=== PATIENT | male | born 1960 | race Caucasian/White ===

== ENCOUNTER 2023-08-18 16:08 | Inpatient (IN) | payer OTHER ==
[~2023-08-18] VITALS: Ht 177.8 cm; Wt 81.6 kg
[2023-08-18 19:50] VITALS: BP 134/54; TEMP 102.5
[2023-08-18 20:30] VITALS: TEMP 101.1
[2023-08-18] MEDS: ACETAMINOPHEN 325 MG TABLET PO PRN (21:01)
[2023-08-18 21:30] VITALS: TEMP 99.8
[2023-08-18] MEDS ORDERED: ONDANSETRON HCL/PF 4 MG/2 ML VIAL IVP PRN (22:30)
[2023-08-18] MEDS ORDERED: Z GUARD REMEDY 4 OZ OINT TP PRN (22:30)
[2023-08-18] MEDS ORDERED: MAG HYDROX/AL HYDROX/SIMETH 30 ML UDC PO PRN (22:30)
[2023-08-18] MEDS ORDERED: MAGNESIUM HYDROXIDE 30 ML UDC PO PRN (22:30)
[2023-08-18] MEDS ORDERED: ACETAMINOPHEN 325 MG TABLET PO PRN (22:30)
[2023-08-18] MEDS ORDERED: LORAZEPAM INJ 2 MG/ML VIAL IV PRN (22:30)
[2023-08-18] MEDS ORDERED: ZOLPIDEM TARTRATE 5 MG TABLET PO PRN (22:30)
[2023-08-18] MEDS ORDERED: PIPERACI/TAZO 3.375GM/D5W 50ML PB IV ONE (23:59)
[2023-08-19] MEDS: IV NS 0.9% 1,000 ML IV PRN (00:07)
[2023-08-19] MEDS: ZOSYN IVPB 3.375 G in IV D5W 50ml IV SCH ×2 (00:09→06:46)
[2023-08-19] MEDS ORDERED: VANCOMYCIN 1.5 GM in IV D5W 500ml IV ONE (00:30)
[2023-08-19] MEDS ORDERED: VANCOMYCIN 1 GM /D5W 250 ML PB IV ONE (00:50)
[2023-08-19 04:00] VITALS: BP 155/87; TEMP 98.4; O2SAT 95
[2023-08-19 06:18] LABS: BASOPHILS % (AUTO) 0.3 % (0.0-2.0); EOSINOPHILS % (AUTO) 0.2 % (0.0-6.0); HEMATOCRIT 40 % (39-51); HEMOGLOBIN 13.2 g/dL (13.5-17.5); LYMPHOCYTES % (AUTO) 16.1 % (20.0-44.0); MEAN CORPUSCULAR HEMOGLOBIN 30 PG (26.0-33.0); MEAN CORPUSCULAR HGB CONC 34 g/dl (31.0-36.0); MEAN CORPUSCULAR VOLUME 89 fL (80-96); MONOCYTES # (AUTO) 1.2 K/uL (0.1-1.30); MONOCYTES % (AUTO) 19.2 % (2.0-12.0); NEUTROPHILS % (AUTO) 64.2 % (43.0-81.0); PLATELET COUNT (AUTO) 141 K/uL (150-450); RED BLOOD CELL COUNT(AUTO) 4.45 MIL/uL (4.5-6.0); RED CELL DISTRIBUTION WIDTH 13.8 % (11.5-15.0); WHITE BLOOD COUNT (AUTO) 6.2 K/uL (4.3-11.0)
[2023-08-19 06:27] LABS: ALBUMIN 2.4 g/dL (3.4-5.0); CALCIUM, SERUM 8.5 mg/dL (8.5-10.1); CREATININE 0.5 mg/dL (0.6-1.3); MAGNESIUM 1.6 mg/dL (1.8-2.4); PHOSPHORUS 3.3 mg/dL (2.5-4.9); TOTAL PROTEIN, SERUM 5.8 g/dL (6.4-8.2)
[2023-08-19 06:50] LABS: POTASSIUM 2.8 mmol/L (3.5-5.1)
[2023-08-19] MEDS ORDERED: POTASSIUM CHLORIDE 10 MEQ TABLET.SA PO ONE (07:00)
[2023-08-19 07:24] LABS: BAND % (MANUAL) 5 % (0.0-5.0); EOSINOPHILS % (MANUAL) 1 % (0-4); LYMPHOCYTES % (MANUAL) 16 % (16-48); MONOCYTES % (MANUAL) 18 % (0-11.0); NEUTROPHILS % (MANUAL) 60 (42-76)
[2023-08-19 07:25] LABS: PLATELET ESTIMATE DECREASED
[2023-08-19] MEDS ORDERED: ERGO500093 PO (07:52)
[2023-08-19] MEDS ORDERED: ATOR40TA PO (07:52)
[2023-08-19] MEDS ORDERED: PANT40TA49 PO (07:52)
[2023-08-19] MEDS ORDERED: FOLI0.4T6 PO (07:52)
[2023-08-19] MEDS ORDERED: CARV6.252 PO (07:52)
[2023-08-19] MEDS ORDERED: ASPI-1420 PO (07:52)
[2023-08-19] MEDS ORDERED: CLOP75TA15 PO (07:52)
[2023-08-19] MEDS: PANTOPRAZOLE 40 MG VIAL IV SCH (08:18)
[2023-08-19] MEDS: CHLORDIAZEPOXIDE HCL 25 MG CAPSULE PO SCH ×2 (08:18→16:18)
[2023-08-19] MEDS: NEOMY SULF/BACITRAC ZN/POLY 15 GM TUBE TP SCH ×2 (08:19→16:20)
[2023-08-19] MEDS ORDERED: MAGNESIUM OXIDE 400 MG TABLET PO ONE (10:00)
[2023-08-19] MEDS: PIPERACILLIN /TAZOBACTAM 3.375 G in IV D5W 50 ML IV SCH ×3 (11:41→23:33)
[2023-08-19 12:00] VITALS: BP 140/90; TEMP 98.6; O2SAT 95
[2023-08-19] MEDS: VANCOMYCIN 1 GM in IV D5W 250 ML IV SCH ×3 (12:13→23:55)
[2023-08-19] MEDS: ACETAMINOPHEN 325 MG TABLET PO PRN (15:57)
[2023-08-19 16:00] VITALS: BP 113/71; TEMP 100; O2SAT 97
[2023-08-19 20:00] VITALS: BP 113/78; TEMP 97.9; O2SAT 97
[2023-08-20 04:00] VITALS: BP 152/90; TEMP 98.1; O2SAT 97
[2023-08-20] MEDS: PIPERACILLIN /TAZOBACTAM 3.375 G in IV D5W 50 ML IV SCH ×4 (06:37→23:26)
[2023-08-20 06:56] LABS: BASOPHILS % (AUTO) 0.8 % (0.0-2.0); EOSINOPHILS % (AUTO) 0.6 % (0.0-6.0); HEMATOCRIT 39 % (39-51); HEMOGLOBIN 12.9 g/dL (13.5-17.5); LYMPHOCYTES # (AUTO) 1.3 K/uL (0.8-4.8); LYMPHOCYTES % (AUTO) 24.5 % (20.0-44.0); MEAN CORPUSCULAR HEMOGLOBIN 30 PG (26.0-33.0); MEAN CORPUSCULAR HGB CONC 33 g/dl (31.0-36.0); MEAN CORPUSCULAR VOLUME 90 fL (80-96); MONOCYTES # (AUTO) 0.8 K/uL (0.1-1.30); MONOCYTES % (AUTO) 15.7 % (2.0-12.0); NEUTROPHILS % (AUTO) 58.4 % (43.0-81.0); PLATELET COUNT (AUTO) 146 K/uL (150-450); RED BLOOD CELL COUNT(AUTO) 4.32 MIL/uL (4.5-6.0); RED CELL DISTRIBUTION WIDTH 13.7 % (11.5-15.0); WHITE BLOOD COUNT (AUTO) 5.1 K/uL (4.3-11.0)
[2023-08-20 07:21] LABS: ALBUMIN 2.3 g/dL (3.4-5.0); BILIRUBIN,TOTAL 0.9 mg/dL (0.2-1.0); CALCIUM, SERUM 8.6 mg/dL (8.5-10.1); CREATININE 0.5 mg/dL (0.6-1.3); MAGNESIUM 1.7 mg/dL (1.8-2.4); PHOSPHORUS 3.4 mg/dL (2.5-4.9); POTASSIUM 3.3 mmol/L (3.5-5.1); TOTAL PROTEIN, SERUM 5.8 g/dL (6.4-8.2)
[2023-08-20 08:00] VITALS: BP 138/116; TEMP 98.8; O2SAT 98
[2023-08-20] MEDS: CHLORDIAZEPOXIDE HCL 25 MG CAPSULE PO SCH ×2 (08:41→17:16)
[2023-08-20] MEDS: PANTOPRAZOLE 40 MG VIAL IV SCH (08:51)
[2023-08-20] MEDS: NEOMY SULF/BACITRAC ZN/POLY 15 GM TUBE TP SCH ×2 (09:14→17:16)
[2023-08-20] MEDS: Magnesium 1GM/D5W 100ML PREMIX 100 ML IV SCH ×2 (10:19→11:12)
[2023-08-20] MEDS: POTASSIUM CL. PREMIX PERIPHER. 50 ML IV SCH ×2 (10:19→11:10)
[2023-08-20 10:56] LABS: PARTIAL THROMBOPLASTIN TIME 22.1 SEC (24.3-34.3); PROTHROMBIN TIME 10.6 SECS (9.2-11.1)
[2023-08-20 12:00] VITALS: BP 138/116; TEMP 98.8; O2SAT 98
[2023-08-20 12:47] LABS: APPEARANCE,URINE CLEAR (CLEAR); BILIRUBIN,URINE NEGATIVE (NEGATIVE); BLOOD, URINE TRACE-INTA Ery/uL (NEGATIVE); COLOR,URINE YELLOW (YELLOW); KETONES,URINE NEGATIVE (NEGATIVE); LEUKOCYTE ESTERASE ,URINE NEGATIVE (NEGATIVE); NITRITE, URINE NEGATIVE (NEGATIVE); PH,URINE 7.5 (5.0-8.0); PROTEIN,URINE NEGATIVE (NEGATIVE); UGLUCOSE NEGATIVE (NEGATIVE); UROBILINOGEN,URINE 0.2 EU/dL (0.2)
[2023-08-20 13:01] LABS: ADD URINE CULTURE NO; BACTERIA,URINE None seen /HPF (None Seen); RBC,URINE 0-2 /HPF (0-2); SQUAMOUS EPITHELIAL CELL,UR Rare /HPF (None Seen); WBC,URINE 0-2 /HPF (0-3)
[2023-08-20] MEDS ORDERED: FENTANYL PF 100MCG/2ML AMPUL ONE (13:56)
[2023-08-20] MEDS ORDERED: MIDAZOLAM HCL 2 MG/2ML VIAL ONE (13:56)
[2023-08-20] MEDS ORDERED: BUPIVACAINE 0.5 % PF 150 MG/30 ML VIAL ONE (13:58)
[2023-08-20 15:45] VITALS: BP 138/80; TEMP 97.8; O2SAT 98
[2023-08-20] MEDS: VANCOMYCIN 1 GM in IV D5W 250 ML IV SCH (16:20)
[2023-08-20] MEDS: IV NS 0.9% 1,000 ML IV PRN (18:37)
[2023-08-20] MEDS: HYDROCODONE/APAP 10/325MG TABLET PO PRN (19:54)
[2023-08-20 20:00] VITALS: BP 131/80; TEMP 97.7; O2SAT 98
[2023-08-20] MEDS: VANCOMYCIN 1 GM in IV D5W 250ml IV SCH (20:48)
[2023-08-21 04:00] VITALS: BP 128/67; TEMP 97.8; O2SAT 98
[2023-08-21] MEDS: VANCOMYCIN 1 GM in IV D5W 250ml IV SCH ×3 (04:27→21:10)
[2023-08-21] MEDS: PIPERACILLIN /TAZOBACTAM 3.375 G in IV D5W 50 ML IV SCH ×4 (05:32→23:29)
[2023-08-21 06:27] LABS: BASOPHILS % (AUTO) 0.3 % (0.0-2.0); EOSINOPHILS % (AUTO) 0.6 % (0.0-6.0); HEMATOCRIT 37 % (39-51); HEMOGLOBIN 12.2 g/dL (13.5-17.5); LYMPHOCYTES # (AUTO) 1.4 K/uL (0.8-4.8); MEAN CORPUSCULAR HEMOGLOBIN 29 PG (26.0-33.0); MEAN CORPUSCULAR HGB CONC 33 g/dl (31.0-36.0); MEAN CORPUSCULAR VOLUME 89 fL (80-96); MONOCYTES # (AUTO) 0.9 K/uL (0.1-1.30); MONOCYTES % (AUTO) 16.5 % (2.0-12.0); NEUTROPHILS # (AUTO) 3.2 K/uL (1.8-8.9); NEUTROPHILS % (AUTO) 57.6 % (43.0-81.0); PLATELET COUNT (AUTO) 160 K/uL (150-450); RED BLOOD CELL COUNT(AUTO) 4.15 MIL/uL (4.5-6.0); RED CELL DISTRIBUTION WIDTH 13.7 % (11.5-15.0); WHITE BLOOD COUNT (AUTO) 5.5 K/uL (4.3-11.0)
[2023-08-21 06:59] LABS: ALBUMIN 2.1 g/dL (3.4-5.0); BILIRUBIN,TOTAL 0.5 mg/dL (0.2-1.0); CALCIUM, SERUM 8.3 mg/dL (8.5-10.1); CREATININE 0.5 mg/dL (0.6-1.3); MAGNESIUM 1.8 mg/dL (1.8-2.4); PHOSPHORUS 3.4 mg/dL (2.5-4.9); POTASSIUM 3.3 mmol/L (3.5-5.1); TOTAL PROTEIN, SERUM 5.3 g/dL (6.4-8.2)
[2023-08-21] MEDS ORDERED: POTASSIUM CHLORIDE 20 MEQ TAB.PRT.SR PO ONE (09:00)
[2023-08-21] MEDS: NEOMY SULF/BACITRAC ZN/POLY 15 GM TUBE TP SCH ×2 (09:21→16:52)
[2023-08-21] MEDS: CHLORDIAZEPOXIDE HCL 25 MG CAPSULE PO SCH ×2 (09:21→16:51)
[2023-08-21] MEDS: PANTOPRAZOLE 40 MG TABLET.DR PO SCH (09:21)
[2023-08-21] MEDS: IV NS 0.9% 1,000 ML IV PRN (09:32)
[2023-08-21 12:00] VITALS: BP 129/85; TEMP 98.6; O2SAT 98
[2023-08-21] MEDS: HYDROCODONE/APAP 10/325MG TABLET PO PRN (13:18)
[2023-08-21] MEDS: MUPIROCIN OINT 2% 22 GM TUBE NS SCH (16:52)
[2023-08-21 17:06] VITALS: BP 137/87; TEMP 97.9; O2SAT 99
[2023-08-21 20:00] VITALS: BP 144/66; TEMP 98.5; O2SAT 98
[2023-08-22 04:00] VITALS: BP 138/69; TEMP 98.4; O2SAT 98
[2023-08-22] MEDS: VANCOMYCIN 1 GM in IV D5W 250ml IV SCH ×3 (04:20→23:11)
[2023-08-22] MEDS: PIPERACILLIN /TAZOBACTAM 3.375 G in IV D5W 50 ML IV SCH ×2 (05:17→11:55)
[2023-08-22] MEDS: IV NS 0.9% 1,000 ML IV PRN (05:45)
[2023-08-22 07:13] LABS: CALCIUM, SERUM 8.2 mg/dL (8.5-10.1); CREATININE 0.6 mg/dL (0.6-1.3); POTASSIUM 3.8 mmol/L (3.5-5.1)
[2023-08-22 08:00] VITALS: BP 150/64; TEMP 98.1; O2SAT 98
[2023-08-22] MEDS: MUPIROCIN OINT 2% 22 GM TUBE NS SCH ×2 (08:39→16:40)
[2023-08-22] MEDS: PANTOPRAZOLE 40 MG TABLET.DR PO SCH (08:39)
[2023-08-22] MEDS: CHLORDIAZEPOXIDE HCL 25 MG CAPSULE PO SCH ×2 (08:39→16:40)
[2023-08-22] MEDS: NEOMY SULF/BACITRAC ZN/POLY 15 GM TUBE TP SCH ×2 (08:39→16:40)
[2023-08-22] MEDS: HYDROCODONE/APAP 10/325MG TABLET PO PRN (12:54)
[2023-08-22 16:00] VITALS: BP 126/94; TEMP 97.5; O2SAT 96
[2023-08-22] MEDS: PIPERACILLIN /TAZOBACTAM 3.375 G in IV D5W 100 ML IV SCH (20:13)
[2023-08-23] VITALS: BP 140/94; TEMP 97.8; O2SAT 98
[2023-08-23] MEDS: VANCOMYCIN 1 GM in IV D5W 250ml IV SCH (05:51)
[2023-08-23] MEDS: PIPERACILLIN /TAZOBACTAM 3.375 G in IV D5W 100 ML IV SCH (05:51)
[2023-08-23 07:22] LABS: CALCIUM, SERUM 8.3 mg/dL (8.5-10.1); CREATININE 0.6 mg/dL (0.6-1.3); POTASSIUM 3.4 mmol/L (3.5-5.1)
[2023-08-23] MEDS: HYDROCODONE/APAP 10/325MG TABLET PO PRN (07:38)
[2023-08-23 08:00] VITALS: BP 136/93; TEMP 97.7; O2SAT 100
[2023-08-23] MEDS: MUPIROCIN OINT 2% 22 GM TUBE NS SCH (08:37)
[2023-08-23] MEDS: NEOMY SULF/BACITRAC ZN/POLY 15 GM TUBE TP SCH (08:37)
[2023-08-23] MEDS: CHLORDIAZEPOXIDE HCL 25 MG CAPSULE PO SCH (08:39)
[2023-08-23] MEDS: PANTOPRAZOLE 40 MG TABLET.DR PO SCH (08:39)
[2023-08-23] MEDS ORDERED: POTASSIUM CHLORIDE 20 MEQ TAB.PRT.SR PO SCH (10:30)
== END 2023-08-23 13:51 | disposition home or self-care (01) | DRG 383 ==
LOC: MEDSG1 19:39
PROVIDERS: ADMIT Nurse Practitioner Acute Care
PROC: 0HBGXZZ Excision of Left Hand Skin, External Approach (ICD-10-PCS; principal; 2023-08-20)
PROC: 05H533Z Insertion of Infusion Device into Right Subclavian Vein, Percutaneous Approach (ICD-10-PCS; 2023-08-20)
PROC: B546ZZA Ultrasonography of Right Subclavian Vein, Guidance (ICD-10-PCS; 2023-08-20)
DX: L03.114 Cellulitis of left upper limb (principal); E87.1 Hypo-osmolality and hyponatremia; I96 Gangrene, not elsewhere classified; L02.512 Cutaneous abscess of left hand; W54.0XXA Bitten by dog, initial encounter; E86.1 Hypovolemia; I25.10 Atherosclerotic heart disease of native coronary artery without angina pectoris; I25.2 Old myocardial infarction; J45.909 Unspecified asthma, uncomplicated; Z59.00 Homelessness unspecified; F17.210 Nicotine dependence, cigarettes, uncomplicated; S51.801A Unspecified open wound of right forearm, initial encounter; X58.XXXA Exposure to other specified factors, initial encounter; Y93.9 Activity, unspecified; Y92.89 Other specified places as the place of occurrence of the external cause; R23.4 Changes in skin texture; S61.203A Unspecified open wound of left middle finger without damage to nail, initial encounter; F10.20 Alcohol dependence, uncomplicated
CPT/HCPCS: 36415; 71045-TC; 73130-TC; 80048-TC; 80053-TC; 80202-TC; 81001; 83735-TC; 84100-TC; 85025-TC; 85730-TC; 86850-TC; 87040-TC; 87081-TC; A4217; A4223; A6403; C9113; G0378; J0690; J1100; J2250; J2405; J2543; J2704; J3010; J3370; J3475; J3480; J3490; J7030; J7040; J7050; J7060